=== PATIENT | male | born 1995 | race Caucasian/White ===

== ENCOUNTER 2022-12-30 17:00 | Emergency (ER) | payer OTHER ==
[~2022-12-30] VITALS: Ht 170.2 cm; Wt 80.0 kg
[2022-12-30 17:11] VITALS: BP 98/49; PULSE 80; RESP 16; TEMP 98.4; O2SAT 97
== END 2022-12-30 22:49 | disposition left against medical advice (07) ==
LOC: ER 17:00
DX: Z53.21 Procedure and treatment not carried out due to patient leaving prior to being seen by health care provider (principal)
CPT/HCPCS: 99281